=== PATIENT | female | born 1945 | race Two or more races ===

== ENCOUNTER 2019-04-10 07:19 | Emergency (ER) | payer MEDICARE ==
[~2019-04-10] VITALS: Ht 172.7 cm; Wt 72.2 kg
--- NOTE | 2019-04-10 07:28 | NUR ---
PT BIB BY GEMA. VS STABLE. PT RESTING ON GURNEY WITH PAIN IN RIGHT ARM FROM NATALIO. MD AT BEDSIDE. AWATING ORDERS. PT DOES NOT LOOK LIKE SHE IS IN DISTRESS.
[2019-04-10] MEDS ORDERED: ACET325T26 PO (07:43)
[2019-04-10] MEDS ORDERED: BUDE10.2 IH (07:45)
[2019-04-10] MEDS ORDERED: ALBU8.5H8 INH (07:45)
[2019-04-10] MEDS ORDERED: CITA20TA9 PO (07:46)
[2019-04-10] MEDS ORDERED: LOSA100T2 PO ×2 (07:47→07:48)
[2019-04-10] MEDS ORDERED: CLON1TAB23 PO (07:47)
[2019-04-10] MEDS ORDERED: TRAZ50TA66 PO (07:48)
[2019-04-10] MEDS ORDERED: LOVA40TA2 PO (07:48)
[2019-04-10] MEDS ORDERED: PRIM50TA34 PO (07:49)
[2019-04-10] MEDS ORDERED: AMLO-150 PO (07:49)
[2019-04-10] MEDS ORDERED: HYDR-3237 PO (07:50)
[2019-04-10] MEDS ORDERED: MORPHINE SULFATE 4 MG/ML, 1ML ONE ×2 (08:15→09:56)
--- NOTE | 2019-04-10 08:21 | NUR ---
MEDICATED W MORPHINE PER MED ORDERS FOR 07/19 PAIN. PT DOES NOT APPEAR IN DISTRESS. CALL LIGHT IN REACH.
[2019-04-10] MEDS ORDERED: morphine SULFATE 10 MG/ML, 1ML IVPush ONE ×2 (08:30→10:00)
--- NOTE | 2019-04-10 08:49 | NUR ---
ASSISTED PT TO BED MELENDREZ. PT STATES PAIN IS 4/10, BUT PIANFUL W MOVEMENT
--- NOTE | 2019-04-10 09:26 | NUR ---
PT SLEEPING. DOES NOT APPEAR IN DESTRESS. PT HAD BM ON BED MELENDREZ. FAMILY AT BEDSIDE
[2019-04-10 10:14] VITALS: BP 129/61
--- NOTE | 2019-04-10 10:15 | NUR ---
MEDICATED PER MD ORDERS FOR PAIN. 05/19 PAIN. SHOULDER IMMOBILIZER BEING PLACED BY TECH. PT RESTING COMFORTABLE. FAMILY AT BEDSIDE. VS STABLE
--- NOTE | 2019-04-10 13:11 | NUR ---
PT AWAITING FOR SON TO DOCK SUPERVISOR. DISCHARGE INSTRUCTIONS GIVEN, PT VERBALIZED UNDERSTANDING
--- NOTE | 2019-04-10 14:32 | NUR ---
Patient/Caregiver given discharge instructions and they have confirmed that they understand the instructions. Patient ambulatory with steady gait.
== END 2019-04-10 14:34 ==
LOC: ED 14:25
DX: S42.254A Nondisplaced fracture of greater tuberosity of right humerus, initial encounter for closed fracture (principal); S42.214A Unspecified nondisplaced fracture of surgical neck of right humerus, initial encounter for closed fracture; W18.30XA Fall on same level, unspecified, initial encounter; Y93.89 Activity, other specified; Y92.009 Unspecified place in unspecified non-institutional (private) residence as the place of occurrence of the external cause; Y99.8 Other external cause status
CPT/HCPCS: 73060; 96374; 96376; 99283; J2270